=== PATIENT | male | born 2000 | race Caucasian/White ===

== ENCOUNTER 2023-08-01 11:05 | Outpatient (RCR) | payer OTHER, SELFPAY | END 2023-08-01 23:59 | disposition home or self-care (01) | LOC: ROT 11:05 | PROVIDERS: ATTENDING PHYSICIAN Orthopaedic Surgery; FAMILY PHYSICIAN Family Medicine | DX: S62.603D Fracture of unspecified phalanx of left middle finger, subsequent encounter for fracture with routine healing (principal); W32.0XXD Accidental handgun discharge, subsequent encounter; Z73.6 Limitation of activities due to disability | CPT/HCPCS: 97018; 97022; 97035; 97110; 97140 ==